=== PATIENT | female | born 2000 | race Caucasian/White ===

== ENCOUNTER 2023-08-22 14:52 | Emergency (ER) | payer BC ==
[2023-08-22] MEDS ORDERED: Ketorolac Tromethamine 30 MG/ML VIAL ONE (15:38)
== END 2023-08-22 16:36 | disposition home or self-care (01) ==
LOC: CSHERS 14:52
DX: S83.92XA Sprain of unspecified site of left knee, initial encounter (principal); S93.402A Sprain of unspecified ligament of left ankle, initial encounter; W18.40XA Slipping, tripping and stumbling without falling, unspecified, initial encounter; Y93.68 Activity, volleyball (beach) (court)
CPT/HCPCS: 96372; J1885

== ENCOUNTER 2025-06-07 20:17 | Emergency (ER) | payer BC ==
[~2025-06-07 20:17] MED LIST: Iopamidol 370 76% 100 ML VIAL ONE
[2025-06-07] MEDS ORDERED: Ketorolac Tromethamine 30 MG (1 mL) VIAL ONE (20:53)
[2025-06-07] MEDS ORDERED: Ondansetron PF 4 MG/2 ML Vial ONE (20:53)
[2025-06-07 21:07] LABS: #Basophils 0.03 10x3/uL (0.0-0.2); #Eosinophils 0.38 10x3/uL (0.0-0.5); #Monocytes 0.64 10x3/uL (0.0-1.1); #Neutrophils 3.59 10x3/uL (1.5-8.4); %Basophils 0.5 % (0.0-2.0); %Eosinophils 5.9 % (0.0-6.0); %Lymphocytes 27.5 % (18.0-47.0); %Monocytes 10.0 % (0.0-10.0); %Neutrophils 55.9 % (40.0-75.0); Hematocrit 32.9 % (34.9-44.5); Hemoglobin 11.6 g/dL (12.0-15.5); Mean Corpuscular Hemoglobin 29.7 pg (27.0-33.0); Mean Corpuscular Volume 84.4 fL (81.6-98.3); Platelet Count 217 10x3/uL (150-450); Red Blood Cell (RBC) Count 3.90 10x6/uL (3.90-5.03); White Blood Cell (WBC) Count 6.41 10x3/uL (3.5-10.5)
[2025-06-07] MEDS ORDERED: Famotidine 20 MG TAB ONE ×2 (21:17→21:29)
[2025-06-07] MEDS ORDERED: Mag-Al 1200 mg/1200 mg/30 ML UDCUP ONE ×3 (21:19→23:09)
[2025-06-07] MEDS ORDERED: Lidocaine Viscous Sol 2% 15 ml UD Cup ONE ×2 (21:19→23:08)
[2025-06-07 21:31] LABS: ALT (SGPT) 42 U/L (Less than 34); AST (SGOT) 30 U/L (11-34); Albumin 3.1 g/dL (3.1-4.5); Alkaline Phosphatase 62 U/L (40-110); Anion Gap 11 mmol/L (10-20); BUN (Urea Nitrogen) 8 mg/dL (7.0-18.7); Bilirubin, Total 0.2 mg/dL (0.3-1.2); Calc. Creatinine Clearance 0 mL/min (70-130); Calcium 8.9 mg/dL (7.8-10.44); Carbon Dioxide 23 mmol/L (22-29); Chloride 109 mmol/L (98-107); Globulin 2.5 g/dL (2.4-3.5); Glucose 102 mg/dL (70-105); Lipase 14 U/L (8-78); Magnesium 1.6 mg/dL (1.6-2.6); Potassium 4.0 mmol/L (3.5-5.1)
[2025-06-07 21:36] LABS: Troponin I Less than 0.010 ng/mL (< 0.028)
[2025-06-07 21:38] LABS: Sodium 139 mmol/L (136-145)
[2025-06-07 21:45] LABS: BHCG - Serum Negative (NEGATIVE); Pregs Control Background? CLEAR/WHITE (CLR/WHITE); Pregs Control Bar Appear? YES (CONTROL BAR)
[2025-06-07] MEDS ORDERED: Aspirin Chewable 81 MG TAB ONE (23:02)
== END 2025-06-07 23:17 | disposition home or self-care (01) ==
LOC: CSHERS 20:17
DX: K29.70 Gastritis, unspecified, without bleeding (principal); Z55.6 Problems related to health literacy
CPT/HCPCS: 71046; 71275; 80053; 83605; 83690; 83735; 83880; 84484; 84703; 85025; 85379; 93005; 96374; 96375; J1885; J2270; J2272; J2405; Q9967

== ENCOUNTER 2025-06-18 19:36 | Emergency (ER) | payer BC ==
[2025-06-18 19:58] LABS: #Basophils 0.03 10x3/uL (0.0-0.2); #Eosinophils 0.37 10x3/uL (0.0-0.5); #Monocytes 0.59 10x3/uL (0.0-1.1); #Neutrophils 3.64 10x3/uL (1.5-8.4); %Basophils 0.4 % (0.0-2.0); %Eosinophils 5.3 % (0.0-6.0); %Lymphocytes 33.7 % (18.0-47.0); %Monocytes 8.5 % (0.0-10.0); %Neutrophils 52.1 % (40.0-75.0); Hematocrit 35.8 % (34.9-44.5); Hemoglobin 12.2 g/dL (12.0-15.5); Mean Corpuscular Hemoglobin 28.5 pg (27.0-33.0); Mean Corpuscular Volume 83.6 fL (81.6-98.3); Platelet Count 317 10x3/uL (150-450); Red Blood Cell (RBC) Count 4.28 10x6/uL (3.90-5.03); White Blood Cell (WBC) Count 6.98 10x3/uL (3.5-10.5)
[2025-06-18] MEDS ORDERED: Ketorolac Tromethamine 30 MG (1 mL) VIAL ONE (20:00)
[2025-06-18] MEDS ORDERED: Acetaminophen 500 MG TAB ONE (20:01)
[2025-06-18] MEDS ORDERED: levETIRAcetam 500 MG (5 mL) VIAL ONE (20:01)
[2025-06-18 20:04] LABS: ALT (SGPT) 18 U/L (Less than 34); AST (SGOT) 21 U/L (11-34); Albumin 3.5 g/dL (3.1-4.5); Alkaline Phosphatase 73 U/L (40-110); Anion Gap 13 mmol/L (10-20); BUN (Urea Nitrogen) 10 mg/dL (7.0-18.7); Bilirubin, Total 0.2 mg/dL (0.3-1.2); Calc. Creatinine Clearance 0 mL/min (70-130); Calcium 9.2 mg/dL (7.8-10.44); Carbon Dioxide 23 mmol/L (22-29); Chloride 107 mmol/L (98-107); Globulin 2.9 g/dL (2.4-3.5); Glucose 89 mg/dL (70-105); Potassium 4.4 mmol/L (3.5-5.1); Sodium 139 mmol/L (136-145)
== END 2025-06-18 21:14 | disposition home or self-care (01) ==
LOC: CSHERS 19:36
DX: G40.909 Epilepsy, unspecified, not intractable, without status epilepticus (principal); Z79.899 Other long term (current) drug therapy
CPT/HCPCS: 70450; 72125; 80053; 85025; 96374; 96375; J1885; J1953

== ENCOUNTER 2025-06-19 20:47 | Emergency (ER) | payer BC ==
[2025-06-19] MEDS ORDERED: levETIRAcetam 500 MG (5 mL) VIAL ONE (21:31)
== END 2025-06-19 22:16 | disposition home or self-care (01) ==
LOC: CSHERS 20:47
DX: G40.909 Epilepsy, unspecified, not intractable, without status epilepticus (principal); F41.9 Anxiety disorder, unspecified
CPT/HCPCS: 96365; J1953